=== PATIENT | female | born 1995 | race Caucasian/White ===

== ENCOUNTER 2023-07-06 06:24 | Emergency (ER) | payer BC, SELFPAY ==
[2023-07-06] VITALS (7 sets, daily range): BP systolic 139; BP diastolic 78; PULSE 68–77; RESP 15–26; TEMP 37.2; O2SAT 100; BMI 27.4
--- NOTE | 2023-07-06 06:45 | PC.NURSE ---
Patient started with upper left chest pain last night at 2230. Pain intensified and is now radiating into left arm and shoulder. Has nausea but no vomiting. Family history of [place] at young age including mother, but no personal history of cardiac disease. Is unsure if she is . Had IUI (intrauterine implant) and is supposed to test today. Was unable to give urine sample.
--- NOTE | 2023-07-06 07:07 | ECG_ITS ---
[facility] Test Date: 2023-07-06 Pat Name: BURKE SCANLON Department: Room: - Gender: Female [place]: : 1995 Requested By: Dutch Gan Order Number: [id number] Reading MD: MARYJANE MCCABE Measurements Intervals [place] Rate: 73 P: 54 CT: 158 QRS: 81 QRSD: 80 T: 65 QT: 376 QTc: 402 Interpretive Statements 1100 Sinus rhythm 9110 normal ECG Compared to ECG 12/05/2020 19:55:09 Right-axis deviation no longer present Electronically Signed On 07-07-2023 6:40:20 EST by MARYJANE MCCABE
--- NOTE | 2023-07-06 07:09 | ED.CHESTPAI1 ---
HPI - Chest Pain General Chief Complaint: Chest Pain Stated Complaint: CHEST PAIN Time Seen by Provider: 07/06/23 06:47 Source: patient Mode of arrival: walk-in Limitations: no limitations History of Present Illness HPI narrative: The patient woke from a nap around 1030pm last night and had left sided chest pain. As she got up she developed pain from the left neck down into the left shoulder and upper arm along with tingling of the fingers of the left hand. her left arm felt weak . She took nothing OTC for the pain. Since then the pain in the left chest has intermittently returned. She is concerned because she has a family history notable for AMI at young age. She also told us that she is trying to get and wants to make sure the test is negative before getting any xrays or meds that would be contra-indicated in . No fever or chills. No cough. No recent GI or symptoms. Patient denied any lifting, fall, injury or other activity which might have caused the pain. Related Data Home Medications Medication Instructions Recorded Confirmed vit no.95-ferrous tab PO 07/06/23 fumarate 28 mg-folic acid 800 mcg tablet () progesterone micronized 200 mg mg 07/06/23 capsule Allergies Allergy/AdvReac Type Severity Reaction Status Date / Time omeprazole AdvReac Mild Rash Uncoded 07/06/23 06:33 PFSH [facility] Social History Smoking status: Never smoker Exam Narrative Exam Narrative: Nurses notes and vital signs reviewed and patient is not hypoxic. afebrile General: Well-appearing and in no apparent distress. Skin: Warm, dry, no pallor noted. No rash. Head: Normocephalic, atraumatic. Neck: Supple, non-tender. No spasm or torticollis. Eye: Pupils are equal, round and EOMI. No scleral icterus. Ears, Nose, Mouth, and Throat: Oral mucosa is moist Cardiovascular: Regular Rate and Rhythm without murmur, gallop or rub. Respiratory: No accessory muscle use or respiratory distress. Lungs are clear to auscultation, no wheezing, rales or rhonchi Chest Wall: left anterior chest wall tenderness, without crepitus or subcutaneous emphysema Back: No midline thoracic or lumbar vertebral tenderness. No left trapezius tenderness Musculoskeletal: normal ROM, no calf or popliteal tenderness, no lower extremity edema/swelling Neurological: A&O x4. No cranial nerve dysfunction observed. No truncal ataxia. Moves all extremities. Sensation intact. Psychiatric: Cooperative and interactive. Normal mood and affect. Constitutional Vital Signs, click to edit/add: Last Vital Signs Temp 99.0 F 07/06/23 06:28 Pulse 77 07/06/23 06:28 Resp 17 07/06/23 06:28 BP 139/78 07/06/23 06:28 Pulse Ox 100 07/06/23 06:43 O2 Del Method Room Air 07/06/23 06:43 Course Vital Signs Vital signs: Vital Signs Temperature 99.0 F 07/06/23 06:28 Pulse Rate 77 07/06/23 06:28 Respiratory Rate 17 07/06/23 06:28 Blood Pressure 139/78 07/06/23 06:28 Pulse Oximetry 100 07/06/23 06:28 Oxygen Delivery Method Room Air 07/06/23 06:28 Temperature 99.0 F 07/06/23 06:28 Pulse Rate 77 07/06/23 06:28 Respiratory Rate 17 07/06/23 06:28 Blood Pressure 139/78 07/06/23 06:28 Pulse Oximetry 100 07/06/23 06:43 Oxygen Delivery Method Room Air 07/06/23 06:43 MDM - Chest Pain MDM Narrative Medical decision making narrative: 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 Blood drawn and sent for evaluation. Serum hCG was ordered. Normal CBC. Normal BMP and negative troponin. D dimer negative. BNP negative. Positive qual HCG. Quant HCG = 18. I warned patient it may be due to hormones she is taking to get . Patient declined tylenol and did not want CXR due to risk. Results discussed and she was given reassurance. Discharged home with recommendation to follow up with her physician. ED return if worse. Lab Data Attestation: I reviewed the patient's lab results. Labs: Lab Results 07/06/23 Range/Units 06:36 WBC 9.5 (4.0-11.0) 10^3/uL RBC 4.73 (4.20-5.40) 10^6/uL Hgb 13.1 (12.0-16.0) g/dL Hct 40.5 (36.0-48.0) % MCV 85.6 (81.0-99.0) fL MCH 27.7 (26.7-34.0) pg MCHC 32.3 (29.9-35.2) g/dL RDW 13.2 (11.0-15.0) % Plt Count 372 (150-450) 10^3/uL MPV 11.0 (9.5-13.5) fL Neut % (Auto) 60.4 (43.0-75.0) % Lymph % (Auto) 30.3 (20.5-60.0) % [place] % (Auto) 6.4 (1.7-12.0) % Eos % (Auto) 2.2 (0.9-7.0) % Baso % (Auto) 0.5 (0.2-2.0) % Neut # (Auto) 5.7 (1.4-6.5) 10^3/uL Lymph # (Auto) 2.9 (1.2-3.8) 10^3/uL [place] # (Auto) 0.6 (0.3-0.8) 10^3/uL Eos # (Auto) 0.2 (0.0-0.7) 10^3/uL Baso # (Auto) 0.1 (0.0-0.1) 10^3/uL Abs Immat Gran (auto) 0.02 (0.00-0.03) 10^3/uL Imm/Tot Granulo (auto) 0.2 (0.0-0.5) % D-Dimer <0.19 (<=0.59) mg/L FEU Sodium 138 (136-145) mmol/L Potassium 4.1 (3.5-5.1) mmol/L Chloride 105 (98-107) mmol/L Carbon Dioxide 24.8 (21.0-32.0) mmol/L Anion Gap 12.3 BUN 14.0 (7.0-18.0) mg/dL Creatinine 0.71 (0.55-1.02) mg/dL Est GFR ( Amer) >60 (>=60) Est GFR (Non-Af Amer) >60 (>=60) BUN/Creatinine Ratio 19.7 Glucose 111 H (74-106) mg/dL Calcium 8.7 (8.5-10.1) mg/dL Troponin I High Sens <4.0 L (4.0-51.3) pg/mL NT-Pro-B Natriuret Pep 74.0 (<=450.0) pg/mL Serum HCG, Qual Positive A (NEGATIVE) HCG, Quant 18 mIU/mL ECG Data Attestation: I personally reviewed and interpreted this ECG as follows: Interpretation: EKG = normal sinus rhythma @ 73bpm, normal intervals, normal axis. No ST elevation or deep ischemic changes. Normal EKG. Heart Score History: Slightly/Non-Suspicious ECG: Normal Age: <45 years Risk Factors: 1 or 2 Risk Factors Troponin: <Normal Limit Total Heart Score Recommendations & Risks:: 1 Discharge Plan Discharge Chief Complaint: Chest Pain Clinical Impression: Non-cardiac chest pain Patient Disposition: Home, Self-Care Time of Disposition Decision: 08:19 Prescriptions / Home Meds: No Action progesterone micronized 200 mg capsule PNV cmb#95-ferrous fumarate-FA [] 28 mg iron- 800 mcg tablet PO Instructions: Peripheral Neuropathy (ED), Noncardiac Chest Pain (ED) Stand Alone Forms: Portal Instructions Referrals: Physician,Non-Staff, MD [Primary Care Provider] - 1 week
[2023-07-06 07:17] LABS: Basophils Absolute Auto 0.1 10^3/uL (0.0-0.1); Basophils Percent Auto 0.5 % (0.2-2.0); Eosinophils Absolute Auto 0.2 10^3/uL (0.0-0.7); Eosinophils Percent Auto 2.2 % (0.9-7.0); Hematocrit 40.5 % (36.0-48.0); Hemoglobin 13.1 g/dL (12.0-16.0); Immature Granulocytes Abs Auto 0.02 10^3/uL (0.00-0.03); Immature Granulocytes Pct Auto 0.2 % (0.0-0.5); Lymphocytes Absolute Auto 2.9 10^3/uL (1.2-3.8); Lymphocytes Percent Auto 30.3 % (20.5-60.0); Mean Corpuscular HGB Conc 32.3 g/dL (29.9-35.2); Mean Corpuscular Hemoglobin 27.7 pg (26.7-34.0); Mean Corpuscular Volume 85.6 fL (81.0-99.0); Monocytes Absolute Auto 0.6 10^3/uL (0.3-0.8); Monocytes Percent Auto 6.4 % (1.7-12.0); Neutrophils Absolute Auto 5.7 10^3/uL (1.4-6.5); Neutrophils Percent Auto 60.4 % (43.0-75.0); Platelet Count 372 10^3/uL (150-450); Red Blood Count 4.73 10^6/uL (4.20-5.40); Red Cell Distribution Width 13.2 % (11.0-15.0); White Blood Count 9.5 10^3/uL (4.0-11.0)
[2023-07-06 07:28] LABS: HCG Qualitative POSITIVE (NEGATIVE)
[2023-07-06 07:32] LABS: Anion Gap 12.3; BUN Creatinine Ratio 19.7; Calcium 8.7 mg/dL (8.5-10.1); Carbon Dioxide 24.8 mmol/L (21.0-32.0); Chloride 105 mmol/L (98-107); Estimated GFR (African America >60 (>=60); Estimated GFR (Non-African Ame >60 (>=60); Glucose 111 mg/dL (74-106); Sodium 138 mmol/L (136-145); Troponin I High Sensitivity <4.0 pg/mL (4.0-51.3)
[2023-07-06 07:37] LABS: Potassium 4.1 mmol/L (3.5-5.1)
[2023-07-06 07:56] LABS: HCG Quantitative 18 mIU/mL
[2023-07-06 07:58] LABS: D Dimer <0.19 mg/L FEU (<=0.59)
== END 2023-07-06 08:29 | disposition home or self-care (01) ==
PROVIDERS: Emergency Provider Emergency Medicine
DX: R07.89 Other chest pain (principal); Z79.899 Other long term (current) drug therapy
CPT/HCPCS: 36415; 80048; 83880; 84484; 84702; 84703; 85025; 85378; 93005; 99284

== ENCOUNTER 2024-02-18 16:34 | Emergency (ER) | payer SELFPAY ==
[2024-02-18 16:38] VITALS: BP 126/87; PULSE 84; TEMP 37.1; O2SAT 100; BMI 27.8
--- NOTE | 2024-02-18 16:45 | ED.FALL1 ---
HPI HPI - Fall General Chief Complaint: Extremity Injury, Lower Stated Complaint: WRIST MARTHA ANKLE INJURY D/T FALL Time Seen by Provider: 02/18/24 16:42 Source: patient Mode of arrival: walk-in History of Present Illness HPI Narrative: This patient is here after a fall last night. Injury occurred at home. She stumbled over her cat. She is right-handed dominant. She does not have any head or neck injury. She has pain over her left heel and Achilles area and also over the right ulnar styloid. She does not have any other complaints today. There is bruising in both areas. She does not have any pain over the knee or the hip or the pelvis. She does not have any actual pain in her lateral or medial malleolus of the ankle it is more at the heel and the Achilles area. She has no loss of feeling in her hand. Related Data Home Medications ?Medication ?Instructions ?Recorded ?Confirmed vit no.95-ferrous tab PO 07/06/23 fumarate 28 mg-folic acid 800 mcg tablet () progesterone micronized 200 mg mg 07/06/23 capsule Allergies Allergy/AdvReac Type Severity Reaction Status Date / Time omeprazole AdvReac Mild Rash Uncoded 07/06/23 06:33 Opioid HPI Opioid Management Most Recent Pain and Opioid Data: No Data to Display PFSH PFS Social History Smoking status: Never smoker Exam Narrative Exam Narrative: Awake alert pleasant. Examining her right wrist she has some minimal discomfort over the ulnar collateral ligament but she has more prominence and discomfort and bruising over the ulnar styloid. The radial aspect of the wrist is unremarkable. No pain in the metacarpals. Examining her left ankle she has no pain over the bony landmarks of the medial or lateral malleolus. She does have discomfort with palpation over the left heel and area of the insertion of the Achilles but there is not disruption of that structure. Constitutional Vital Signs, click to edit/add: Last Vital Signs Temp 98.7 F 02/18/24 16:38 Pulse 84 02/18/24 16:38 Resp 16 02/18/24 16:38 BP 126/87 02/18/24 16:38 Pulse Ox 100 02/18/24 16:38 Course Vital Signs Vital signs: Vital Signs Temperature 98.7 F 02/18/24 16:38 Pulse Rate 84 02/18/24 16:38 Respiratory Rate 16 02/18/24 16:38 Blood Pressure 126/87 02/18/24 16:38 Pulse Oximetry 100 02/18/24 16:38 Temperature 98.7 F 02/18/24 16:38 Pulse Rate 84 02/18/24 16:38 Respiratory Rate 16 02/18/24 16:38 Blood Pressure 126/87 02/18/24 16:38 Pulse Oximetry 100 02/18/24 16:38 MDM - Fall MDM Narrative Medical decision making narrative: X-rays were reviewed by myself. My clinical impression is that these were soft tissue injuries. In fact I do not see any obvious fracture. It will be reviewed by the radiologist. We will place her in a left cock up splint and a postop shoe Discharge Plan Discharge Chief Complaint: Extremity Injury, Lower Clinical Impression: Right wrist sprain, Contusion of heel Patient Disposition: Home, Self-Care Time of Disposition Decision: 17:45 Prescriptions / Home Meds: No Action progesterone micronized 200 mg capsule PNV b#95-ferrous fumarate-FA [] 28 mg iron- 800 mcg tablet PO Print Language: Norwegian Additional Instructions: Wear splint for several days. Also wear the shoe for several days. May apply ice to the area. May use [id number] NSAIDs. Follow-up with your primary care doctor Referrals: Physician,Non-Staff, MD [Primary Care Provider] - 1 week
--- NOTE | 2024-02-18 16:47 | XR_ITS ---
[place] [id number] Patient Name: BURKE SCANLON MRN: [id number] date: 1995 Sex: F Assigned Patient Location: ER Current Patient Location: Accession/Order Number: [id number] Exam Date: 02/18/2024 16:50 Report Date: 02/18/2024 18:27 At the request of: JAMEL KATHLEEN Procedure: XR foot LT min 3V IMAGES REVIEWED: XR foot LT min 3V, XR wrist RT min 3V COMPARISON: None available. CLINICAL INDICATION: Fall FINDINGS/IMPRESSION: No evidence of acute osseous abnormality of the left foot or right wrist. Mild right ulnar wrist soft tissue swelling. Slight positive ulnar variance. Electronically authenticated by: DIANE HINOJOSA Date: 02/18/2024 18:27
--- NOTE | 2024-02-18 16:47 | XR_ITS ---
[address] [address] Patient Name: BURKE SCANLON MRN: [id number] date: 1995 Sex: F Assigned Patient Location: ER Current Patient Location: Accession/Order Number: [id number] Exam Date: 02/18/2024 16:50 Report Date: 02/18/2024 18:27 At the request of: JAMEL KATHLEEN Procedure: XR wrist RT min 3V IMAGES REVIEWED: XR foot LT min 3V, XR wrist RT min 3V COMPARISON: None available. CLINICAL INDICATION: Fall FINDINGS/IMPRESSION: No evidence of acute osseous abnormality of the left foot or right wrist. Mild right ulnar wrist soft tissue swelling. Slight positive ulnar variance. Electronically authenticated by: DIANE HINOJOSA Date: 02/18/2024 18:27
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
== END 2024-02-18 17:57 | disposition home or self-care (01) ==
PROVIDERS: Emergency Provider Emergency Medicine Emergency Medical Services
DX: S90.32XA Contusion of left foot, initial encounter (principal); S63.501A Unspecified sprain of right wrist, initial encounter; W19.XXXA Unspecified fall, initial encounter
CPT/HCPCS: 73110; 73630; 99284